=== PATIENT | female | born 1940 | race Asian ===

== ENCOUNTER 2017-03-24 17:06 | Inpatient (IN) | END 2017-04-08 14:05 | disposition home health service (06) | DRG 195 ==

== ENCOUNTER 2018-09-16 19:54 | Inpatient (IN) | payer MEDICARE, OTHER ==
[~2018-09-16] VITALS: Ht 149.9 cm; Wt 57.7 kg
[~2018-09-16 19:54] MED LIST: AMLO-147 PO; BRIM15DR7 LEFT EYE; CALC500T12 PO; ERGO2000 PO; LATA2.5D2 BOTH EYES; METF-849 PO; METO-448 PO; OMEP20CA16 PO; SIMV20TA PO
[2018-09-16] MEDS ORDERED: SOD CHLORIDE 0.9% 500 ML IV STA (23:04)
[2018-09-17] MEDS ORDERED: ONDANSETRON 4 MG INJ IV PRN (03:30)
[2018-09-17] MEDS ORDERED: ACETAMINOPHEN 325 MG TAB PO PRN (03:30)
[2018-09-17] MEDS ORDERED: NACL 0.9% 3 ML SYG IV SCH (04:00)
[2018-09-17] MEDS ORDERED: LEVALBUTEROL (NEB) 1.25 MG/0.5 ML AMP HHN PRN (04:00)
[2018-09-17] MEDS ORDERED: morphine 2 MG INJ IV PRN (04:00)
[2018-09-17] MEDS: SOD CHLORIDE 0.9% 1,000 ML IV SCH ×2 (04:15→18:13)
--- NOTE | 2018-09-17 04:38 | ERD ---
ER Documentation Chief Complaint Chief Complaint AP N/D X 1 DAY, BRIGHT RED BLOOD IN STOOL HPI This 77-year-old abdominal pain nausea and diarrhea for 1 day patient had bright red blood in her stool. She is a history of internal hemorrhoids. She states there is a left lower quadrant abdominal pain is mild to moderate in intensity with no exacerbating alleviating factors. Denies fevers or chills. Denies any other current issues. ROS All systems reviewed and are negative except as per history of present illness. Medications Home Meds Reported Medications Brimonidine Tartrate* (Brimonidine Tartrate*) 0.2%-15ML Drop Opht, 1 DROP LEFT EYE BID, #1 EA 04/04/17 Latanoprost (Latanoprost) 2.5 Ml Drops, 1 DROP BOTH EYES DAILY, #1 BOTTLE 03/25/17 Calcium Carbonate* (Oysco-500*) 1 Tab Tablet, 1 TAB PO BID, TAB 09/18/15 Simvastatin* (Zocor*) 20 Mg Tablet, 20 MG PO QHS, #30 TAB 09/18/15 Ergocalciferol (Vitamin D2) (VITAMIN D2) 2,000 Unit Tablet, 2000 UNIT PO DAILY, TAB 09/18/15 Omeprazole* (Omeprazole*) 20 Mg Capsule.dr, 20 MG PO DAILY, #30 CAP 09/18/15 Metoprolol Tartrate* (Lopressor*) 25 Mg Tab, 25 MG PO BID, #60 TAB 09/18/15 Metformin* (Glucophage*) 500 Mg Tab, 500 MG PO WITH BREAKFAST DINNE, #30 TAB 09/18/15 Discontinued Reported Medications Amlodipine Besylate* (Amlodipine Besylate*) 10 Mg Tablet, 10 MG PO DAILY, #30 TAB 09/18/15 Allergies Allergies: Coded Allergies: cyanocobalamin (vitamin B12) (Unverified Allergy, Unknown, SWELLING, 09/17/18) Uncoded Allergies: VITAMIN B12 (Allergy, Unknown, swelling, 03/05/15) PMhx/Soc History of Surgery: Yes (C-SECTIONX4,HYSTERECTOMY,LAMINECTOMY,LARYNGECTOMY) Anesthesia Reaction: No Hx Neurological Disorder: No Hx Respiratory Disorders: No Hx Cardiac Disorders: Yes (HTN,high cholesterol) Hx Psychiatric Problems: No Hx Miscellaneous Medical Probl: Yes (cancer of lanrynx, former cigarette smoker,last chemo 2016,hemorrhoids) Hx Alcohol Use: No Hx Substance Use: No Hx Tobacco Use: Yes (quit) Smoking Status: Former smoker Physical Exam Vitals Vital Signs Date Temp Pulse Resp B/P (MAP) Pulse Ox O2 O2 Flow FiO2 Time Delivery Rate 09/17/18 107 24 146/93 96 Room Air 03:53 (110) 09/17/18 91 24 122/81 94 Room Air 03:01 (95) 09/17/18 99 24 117/79 94 Room Air 02:31 (92) 09/17/18 91 24 112/66 94 Room Air 02:00 (81) 09/17/18 88 23 116/58 94 Room Air 01:30 (77) 09/17/18 88 22 125/73 96 Room Air 01:00 (90) 09/16/18 98.6 111 20 147/88 97 20:20 (107) Physical Exam Const: No acute distress Head: Atraumatic Eyes: Normal Conjunctiva ENT: Normal External Ears, Nose and Mouth. Neck: Full range of motion. No meningismus. Resp: Clear to auscultation bilaterally Cardio: Regular rate and rhythm, no murmurs Abd: Soft, non tender, non distended. Normal bowel sounds Skin: No petechiae or rashes Back: No midline or flank tenderness Ext: No cyanosis, or edema Neur: Awake and alert Psych: Normal Mood and Affect Result Diagram: 09/16/18 2356 09/16/18 2356 Results 24 hrs Laboratory Tests Test 09/16/18 23:56 09/17/18 00:51 White Blood Count 16.0 10^3/ul Red Blood Count 5.76 10^6/ul Hemoglobin 11.3 g/dl Hematocrit 38.2 % Mean Corpuscular Volume 66.3 fl Mean Corpuscular Hemoglobin 19.6 pg Mean Corpuscular Hemoglobin Concent 29.6 g/dl Red Cell Distribution Width 16.3 % Platelet Count 361 10^3/UL Mean Platelet Volume 10.6 fl Immature Granulocytes % 1.200 % Neutrophils % 71.9 % Lymphocytes % 20.6 % Monocytes % 5.2 % Eosinophils % 0.6 % Basophils % 0.5 % Nucleated Red Blood Cells % 0.0 /100WBC Immature Granulocytes # 0.200 10^3/ul Neutrophils # 11.5 10^3/ul Lymphocytes # 3.3 10^3/ul Monocytes # 0.8 10^3/ul Eosinophils # 0.1 10^3/ul Basophils # 0.1 10^3/ul Nucleated Red Blood Cells # 0.0 10^3/ul Prothrombin Time 11.9 Sec Prothrombin Time Ratio 0.9 INR International Normalized Ratio 0.87 Activated Partial Thromboplast Time 32.2 Sec Sodium Level 144 mmol/L Potassium Level 4.1 mmol/L Chloride Level 108 mmol/L Carbon Dioxide Level 23 mmol/L Anion Gap 13 Blood Urea Nitrogen 32 mg/dl Creatinine 1.09 mg/dl Est Glomerular Filtrat Rate mL/min mL/min Glucose Level 149 mg/dl Calcium Level 9.6 mg/dl Total Bilirubin 0.2 mg/dl Direct Bilirubin 0.00 mg/dl Indirect Bilirubin 0.2 mg/dl Aspartate Amino Transf (AST/SGOT) 22 IU/L Alanine Aminotransferase (ALT/SGPT) 21 IU/L Alkaline Phosphatase 109 IU/L Total Protein 7.3 g/dl Albumin 4.0 g/dl Globulin 3.30 g/dl Albumin/Globulin Ratio 1.21 Lipase 138 U/L Urine Color YELLOW Urine Clarity SLIGHTLY CLOUDY Urine pH 5.0 Urine Specific [place] 1.028 Urine Ketones NEGATIVE mg/dL Urine Nitrite NEGATIVE mg/dL Urine Bilirubin NEGATIVE mg/dL Urine Urobilinogen NEGATIVE mg/dL Urine Leukocyte Esterase NEGATIVE Loly/ul Urine Microscopic RBC 4 /HPF Urine Microscopic WBC 0 /HPF Urine Bacteria FEW /HPF Urine Mucus FEW /HPF Urine Hemoglobin NEGATIVE mg/dL Urine Glucose NEGATIVE mg/dL Urine Total Protein NEGATIVE mg/dl Current Medications Medications Dose Sig/Rickie Start Time Status Last (Trade) Ordered Route PRN Stop Time Admin Dose Reason Admin Sodium 500 ml @ Q1H STAT 09/16/18 DC 09/17/18 Chloride 500 mls/hr IV 23:04 00:42 09/17/18 00:03 Ondansetron 4 mg BRIDGE ORDER 09/17/18 HCl (Zofran PRN IV 03:30 Inj) NAUSEA/VOMITI 09/18/18 03:29 NG 650 mg ER BRIDGE 09/17/18 Acetaminophen PRN PO 03:30 (Tylenol .MILD PAIN 09/18/18 03:29 Tab) 1-3 OR TEMP Sodium 1,000 ml @ [id number] IV 09/17/18 09/17/18 Chloride 70 mls/hr 03:55 04:15 IV Flush 3 ml PER 09/17/18 (NS 3 ml) PROTOCOL IV 04:00 Ondansetron 4 mg Q6H PRN 09/17/18 HCl (Zofran IV 04:00 Inj) NAUSEA/VOMITI NG 650 mg Q6H PRN 09/17/18 Acetaminophen PO .PAIN 1-3 04:00 (Tylenol OR TEMP Tab) Morphine 2 mg Q4H PRN 09/17/18 Sulfate IV .SEVERE 04:00 (morphine) PAIN 7-10 1.25 mg Q4H RESP 09/17/18 Levalbuterol THERAPY PRN 04:00 (Xopenex HHN Neb) SHORTNESS OF BREATH Procedures/MDM Medical decision makin-year-old female with elevated white count, left lower quadrant pain, diarrhea. Suspicious for early diverticulitis. No evid ence of surgical abdomen, however given her multiple comorbidities I feel the patient is to be admitted further evaluation management. Dr. Montano made aware. Departure Diagnosis: Primary Impression: Diverticulitis Condition: JOHNNY Birch Sep 17, 2018 04:38
[2018-09-17 05:37] VITALS: Ht 149.9 cm; Wt 57.7 kg
[2018-09-17 06:00] VITALS: BP 127/70; PULSE 96; RESP 17
--- NOTE | 2018-09-17 06:38 | HP ---
Date/Time of Note Date/Time of Note DATE: 09/17/18 TIME: 06:26 Assessment/Plan VTE Prophylaxis SCD applied (from Nsg): Yes Pharmacological prophylaxis: NA/contraindicated Pharm contraindication: low risk/ambulating Lines/Catheters IV Catheter Type (from Nrsg): Peripheral IV Assessment/Plan Hospital Course This is a 77-year female admitted to the [facility] floor for: #1 rectal bleeding: Possible diverticular bleed versus hemorrhoids. We will keep the patient n.p.o. IV hydration with normal saline. CBC every 6 hours. Will consult GI #2 URI: Likely viral. Patient is afebrile. PRN nebulizers, cough suppressant. Will monitor for any signs of fever. #3 leukocytosis: Possibly reactive, patient does have upper respiratory infection but she has remained afebrile according to her. Will check blood cultures x2, urinalysis is negative. Chest x-ray does show signs of possible bronchiolitis however patient does have a history also of lung CA. 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 #5 HIREN: Likely prerenal etiology, will hydrate the patient. Will monitor renal function. #6 diabetes mellitus: We will check hemoglobin A 1C, insulin sliding scale #7 glaucoma: We will continue patient's home ophthalmology meds #8 hyperlipidemia: Continue statin #9 hypertension: We will resume patient's home medications #10 DVT GI prophylaxis: SCDs, no GI prophylaxis indicated Further treatment strategy will be implemented as per the clinical course. Result Diagram: 09/16/18235509/16/18 2356 Results 24hrs Laboratory Tests Test 09/16/18 23:56 09/17/18 00:51 White Blood Count 16.0 #H Red Blood Count 5.76 #H Hemoglobin 11.3 #L Hematocrit 38.2 # Mean Corpuscular Volume 66.3 L Mean Corpuscular Hemoglobin 19.6 L Mean Corpuscular Hemoglobin Concent 29.6 L Red Cell Distribution Width 16.3 H Platelet Count 361 Mean Platelet Volume 10.6 H Immature Granulocytes % 1.200 H Neutrophils % 71.9 Lymphocytes % 20.6 Monocytes % 5.2 Eosinophils % 0.6 Basophils % 0.5 Nucleated Red Blood Cells % 0.0 Immature Granulocytes # 0.200 H Neutrophils # 11.5 H Lymphocytes # 3.3 H Monocytes # 0.8 Eosinophils # 0.1 Basophils # 0.1 Nucleated Red Blood Cells # 0.0 Prothrombin Time 11.9 Prothrombin Time Ratio 0.9 INR International Normalized Ratio 0.87 Activated Partial Thromboplast Time 32.2 Sodium Level 144 Potassium Level 4.1 Chloride Level 108 Carbon Dioxide Level 23 Anion Gap 13 Blood Urea Nitrogen 32 H Creatinine 1.09 H Est Glomerular Filtrat Rate mL/min Glucose Level 149 Calcium Level 9.6 Total Bilirubin 0.2 Direct Bilirubin 0.00 Indirect Bilirubin 0.2 Aspartate Amino Transf (AST/SGOT) 22 Alanine Aminotransferase (ALT/SGPT) 21 Alkaline Phosphatase 109 Total Protein 7.3 Albumin 4.0 Globulin 3.30 H Albumin/Globulin Ratio 1.21 Lipase 138 Urine Color YELLOW Urine Clarity SLIGHTLY CLOUDY A Urine pH 5.0 Urine Specific [place] 1.028 Urine Ketones NEGATIVE Urine Nitrite NEGATIVE Urine Bilirubin NEGATIVE Urine Urobilinogen NEGATIVE Urine Leukocyte Esterase NEGATIVE Urine Microscopic RBC 4 Urine Microscopic WBC 0 Urine Bacteria FEW A Urine Mucus FEW A Urine Hemoglobin NEGATIVE Urine Glucose NEGATIVE Urine Total Protein NEGATIVE HPI/ROS Admit Date/Time Admit Date/Time Sep 17, 2018 at 03:17 Hx of Present Illness Chief complaint: Rectal bleeding This is a 77-year-old female who presents to the ER today with 1 night of rectal bleeding. Patient reports that she had multiple bright red blood bowel movement. She denies any abdominal pain. She does report a history of hemorrhoids. She states that she does have some pain in the rectal area. Patient also has a one-week history of a nonproductive cough. She denies any fevers. Patient has a history of laryngeal cancer with mets to the lung. She previously received chemotherapy and radiation in 2017. Patient was originally admitted for diverticulitis however on CT scan there is no evidence of diverticulitis. Patient is afebrile. She does not report any fevers at home. There is evidence of diverticulosis. Allergies: Vitamin B12 Medications: Pulmonary tartrate Calcium carbonate Latanoprost Metformin Lopressor Simvastatin ROS Const: As per HPI Eyes : No pain discharge or redness or change in visual acuity ENT: No pain, sore throat, congestion, congestion, dysphagia or discharge Respiratory: As per HPI, Cardiovascular: No chest pain, palpitation, PND, or edema GI : As per HPI Genitourinary: No dysuria, hematuria, flank pain , discharge or CVA tenderness Musculoskeletal: No joint pain, back pain, neck pain, restricted range of motion in neck or joints Skin: No rash, bruising or hives Neuro: No headache, dizziness, syncope, seizure, focal weakness Endocrine: No polyuria, polydipsia, temperature intolerance Psych: No hallucination, depression, anxiety or suicidal ideation PMH/Family/Social Past Medical History Hypertension Diabetes mellitus Glaucoma Hyperlipidemia History of laryngeal cancer with mass of the lung Medications Current Medications Ondansetron HCl (Zofran Inj) 4 mg BRIDGE ORDER PRN IV NAUSEA/VOMITING; Start 09/17/18 at 03:30; Stop 09/18/18 at 03:29 Acetaminophen (Tylenol Tab) 650 mg ER BRIDGE PRN PO .MILD PAIN 1-3 OR TEMP; Start 09/17/18 at 03:30; Stop 09/18/18 at 03:29 Sodium Chloride 1,000 ml @ 70 mls/hr [id number] IV Last administered on 09/17/18at 04:15; Admin Dose 70 MLS/HR; Start 09/17/18 at 03:55 IV Flush (NS 3 ml) 3 ml PER PROTOCOL IV ; Start 09/17/18 at 04:00 Ondansetron HCl (Zofran Inj) 4 mg Q6H PRN IV NAUSEA/VOMITING; Start 09/17/18 at 04:00 Acetaminophen (Tylenol Tab) 650 mg Q6H PRN PO .PAIN 1-3 OR TEMP; Start 09/17/18 at 04:00 Morphine Sulfate (morphine) 2 mg Q4H PRN IV .SEVERE PAIN 7-10; Start 09/17/18 at 04:00 Levalbuterol (Xopenex Neb) 1.25 mg Q4H RESP THERAPY PRN HHN SHORTNESS OF BREATH; Start 09/17/18 at 04:00 Coded Allergies: cyanocobalamin (vitamin B12) (Unverified Allergy, Unknown, SWELLING, 09/17/18) Past Surgical History Hysterectomy, laminectomy, x4, partial laryngectomy Family History Significant Family History: no pertinent family hx Social History Alcohol Use: none Smoking Status: Former smoker Drug Use: none Exam/Review of Systems Vital Signs Vitals Vital Signs Date Temp Pulse Resp B/P (MAP) Pulse Ox O2 O2 Flow FiO2 Time Delivery Rate 09/17/18 98.1 96 17 127/70 95 Room Air 06:00 (89) Intake and Output 09/16/18 09/16/18 09/17/18 1515:00 23:00 07:00 IntakeIntake Total 640 ml BalanceBalance 640 ml Exam Exam General: Patient is a pleasant female currently lying in bed in no acute distress HEENT: Atraumatic, normocephalic. The pupils are equal, round and reactive. Extraocular motor are intact Neck: Supple with full range of motion. No rigidity or meningismus Chest: Nontender Lungs: Clear to auscultation bilaterally no crackles rales or wheezing Heart: Normal S1-S2, Regular rhythm and rate. No murmur, S3, or S4 Abdomen: Soft , nontender, nondistended , bowel sounds are present. No guarding no rebound tenderness , No masses or organomegaly. Extremities: Normal to inspection, no edema no cyanosis Genitourinary deferred Rectal deferred Neurologic: Normal mental status, speech normal, cranial nerves II through XII are intact, motor and sensory are intact, MAGALY FLYNN Sep 17, 2018 06:37
[2018-09-17] MEDS: PANTOPRAZOLE (EC) 40 MG TAB PO SCH (07:00)
[2018-09-17] MEDS ORDERED: IODIXANOL LOCM 100 ML BTL ONE (07:40)
[2018-09-17] MEDS ORDERED: SOD CHLORIDE 0.9% 100 ML ONE (07:40)
[2018-09-17] MEDS: METOPROLOL 25 MG TAB PO SCH ×3 (09:00→20:26)
[2018-09-17] MEDS ORDERED: NON-FORMULARY/PATIENT OWN MED (Omeprazole* 20 MG) PO SCH (09:00)
[2018-09-17] MEDS: FERROUS SULFATE (EC) 325 MG TAB PO SCH ×3 (09:00→20:28)
[2018-09-17] MEDS: LATANOPROST 0.005% 2.5 ML OPH BOTH EYES SCH ×2 (09:00→13:32)
[2018-09-17] MEDS: BRIMONIDINE 0.2% 5 ML BTL LEFT EYE SCH ×2 (09:17→20:28)
--- NOTE | 2018-09-17 10:42 | PN ---
Date/Time of Note Date/Time of Note DATE: 09/17/18 TIME: 10:38 Assessment/Plan VTE Prophylaxis Risk score (from [facility])>0 risk: 3 SCD applied (from [facility]): Yes Pharmacological prophylaxis: NA/contraindicated Pharm contraindication: bleeding Lines/Catheters IV Catheter Type (from [facility]): Peripheral IV Assessment/Plan Hospital Course Assessment and plan 1. Rectal bleeding. Suspect diverticular bleed versus hemorrhoids. N.p.o. for now. Continue IV hydration. Edi Developer was notified. Monitor H&H trend. 2. Suspect URI. Patient afebrile at present. Will provide with breathing treatments as needed. No signs of fever at present. Suspect viral etiology. 3. Leukocytosis. Likely reactive. Monitor trend. 4. 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 CT scan of the chest is pending. We will follow-up with results. 5. Acute on likely chronic kidney disease. Monitor renal function. Continue with hydration. Correct electrolytes as needed. 6. Diabetes. Follow-up on A1c. Insulin regimen to be continued. 7. History of glaucoma. Patient's home ophthalmologic medications to be continued. 8. Hyperlipidemia. Resume on statin. 9. Hypertension. Continue antihypertensives. Disposition and plan. Edi Developer evaluation is pending. Monitor H&H trend. Transfuse blood products as needed. Follow-up on CT scan of the chest to evaluate pulmonary status. Discussed POC with Dr. Grant Result Diagram: 09/17/18 0933 09/17/18 0546 Results 24hrs Laboratory Tests Test 09/16/18 23:56 09/17/18 00:51 09/17/18 05:46 09/17/18 05:47 White Blood Count 16.0 #H 10.0 # Red Blood Count 5.76 #H 4.68 Hemoglobin 11.3 #L 9.2 L Hematocrit 38.2 # 30.6 L Mean Corpuscular 66.3 L 65.4 L Volume Mean Corpuscular 19.6 L 19.7 L Hemoglobin Mean Corpuscular 29.6 L 30.1 L Hemoglobin Concen t Red Cell 16.3 H 15.9 H Distribution Width Platelet Count 361 329 Mean Platelet 10.6 H 11.0 H Volume Immature 1.200 H 1.200 H Granulocytes % Neutrophils % 71.9 66.2 Lymphocytes % 20.6 23.9 Monocytes % 5.2 7.4 Eosinophils % 0.6 0.8 Basophils % 0.5 0.5 Nucleated Red 0.0 0.0 Blood Cells % Immature 0.200 H 0.120 H Granulocytes # Neutrophils # 11.5 H 6.6 Lymphocytes # 3.3 H 2.4 Monocytes # 0.8 0.7 Eosinophils # 0.1 0.1 Basophils # 0.1 0.1 Nucleated Red 0.0 0.0 Blood Cells # Prothrombin Time 11.9 12.5 Prothrombin Time 0.9 1.0 Ratio INR International 0.87 0.92 Normalized Ratio Activated 32.2 33.4 Partial Thrombopl ast Time Sodium Level 144 143 Potassium Level 4.1 3.6 Chloride Level 108 110 Carbon Dioxide 23 26 Level Anion Gap 13 7 Blood Urea 32 H 29 H Nitrogen Creatinine 1.09 H 0.94 Est Glomerular Filtrat Rate mL/min Glucose Level 149 182 Calcium Level 9.6 8.5 Total Bilirubin 0.2 0.2 Direct Bilirubin 0.00 0.00 Indirect 0.2 0.2 Bilirubin Aspartate Amino 22 16 Transf (AST/SGOT) Alanine 21 21 Aminotransferase (ALT/SGPT) Alkaline 109 94 Phosphatase Total Protein 7.3 6.4 Albumin 4.0 3.3 Globulin 3.30 H 3.10 Albumin/Globulin 1.21 1.06 Ratio Lipase 138 Urine Color YELLOW Urine Clarity SLIGHTLY CLOUDY A Urine pH 5.0 Urine Specific 1.028 [place] Urine Ketones NEGATIVE Urine Nitrite NEGATIVE Urine Bilirubin NEGATIVE Urine NEGATIVE Urobilinogen Urine Leukocyte NEGATIVE Esterase Urine Microscopic 4 RBC Urine Microscopic 0 WBC Urine Bacteria FEW A Urine Mucus FEW A Urine Hemoglobin NEGATIVE Urine Glucose NEGATIVE Urine Total NEGATIVE Protein Hemoglobin A1c 7.7 H Magnesium Level 1.9 Iron Level 30 L Total Iron 287 Binding Capacity Percent Iron 10 L Saturation Ferritin 53.1 C-Reactive 0.9 Protein Triglycerides 240 H Level Cholesterol Level 102 LDL Cholesterol, 40 Calculated HDL Cholesterol 14 L Cholesterol/HDL 7.2 Ratio Thyroid 0.706 Stimulating Hormone (TSH) Test 09/17/18 09:33 White Blood Count 13.3 #H Red Blood Count 4.32 Hemoglobin 8.6 L Hematocrit 28.5 L Mean Corpuscular 66.0 L Volume Mean Corpuscular 19.9 L Hemoglobin Mean Corpuscular 30.2 L Hemoglobin Concen t Red Cell 16.0 H Distribution Width Platelet Count 295 Mean Platelet 10.3 Volume Immature 1.100 H Granulocytes % Neutrophils % 69.4 Lymphocytes % 22.1 Monocytes % 6.4 Eosinophils % 0.6 Basophils % 0.4 Nucleated Red 0.0 Blood Cells % Immature 0.150 H Granulocytes # Neutrophils # 9.2 H Lymphocytes # 2.9 Monocytes # 0.9 Eosinophils # 0.1 Basophils # 0.1 Nucleated Red 0.0 Blood Cells # Subjective 24 Hr Interval Summary Free Text/Dictation denies any abdominal pain. States she is hungry Exam/Review of Systems Exam Vitals Vital Signs Date Temp Pulse Resp B/P (MAP) Pulse Ox O2 O2 Flow FiO2 Time Delivery Rate 09/17/18 98.1 96 17 127/70 95 Room Air 06:00 (89) Intake and Output 09/16/18 09/16/18 09/17/18 1515:00 23:00 07:00 IntakeIntake Total 640 ml BalanceBalance 640 ml Constitutional: alert, oriented Psych: nl mood/affect Head: normocephalic Neck: supple, non-tender Respiratory: normal air movement Cardiovascular: regular rate and rhythm Gastrointestinal: soft, non-tender Musculoskeletal: No muscle weakness Neurological: GARDENING INSTRUCTOR II-XII intact, nl mental status, nl speech Results Results 24hrs Laboratory Tests Test 09/16/18 23:56 09/17/18 00:51 09/17/18 05:46 09/17/18 05:47 White Blood Count 16.0 #H 10.0 # Red Blood Count 5.76 #H 4.68 Hemoglobin 11.3 #L 9.2 L Hematocrit 38.2 # 30.6 L Mean Corpuscular 66.3 L 65.4 L Volume Mean Corpuscular 19.6 L 19.7 L Hemoglobin Mean Corpuscular 29.6 L 30.1 L Hemoglobin Concen t Red Cell 16.3 H 15.9 H Distribution Width Platelet Count 361 329 Mean Platelet 10.6 H 11.0 H Volume Immature 1.200 H 1.200 H Granulocytes % Neutrophils % 71.9 66.2 Lymphocytes % 20.6 23.9 Monocytes % 5.2 7.4 Eosinophils % 0.6 0.8 Basophils % 0.5 0.5 Nucleated Red 0.0 0.0 Blood Cells % Immature 0.200 H 0.120 H Granulocytes # Neutrophils # 11.5 H 6.6 Lymphocytes # 3.3 H 2.4 Monocytes # 0.8 0.7 Eosinophils # 0.1 0.1 Basophils # 0.1 0.1 Nucleated Red 0.0 0.0 Blood Cells # Prothrombin Time 11.9 12.5 Prothrombin Time 0.9 1.0 Ratio INR International 0.87 0.92 Normalized Ratio Activated 32.2 33.4 Partial Thrombopl ast Time Sodium Level 144 143 Potassium Level 4.1 3.6 Chloride Level 108 110 Carbon Dioxide 23 26 Level Anion Gap 13 7 Blood Urea 32 H 29 H Nitrogen Creatinine 1.09 H 0.94 Est Glomerular Filtrat Rate mL/min Glucose Level 149 182 Calcium Level 9.6 8.5 Total Bilirubin 0.2 0.2 Direct Bilirubin 0.00 0.00 Indirect 0.2 0.2 Bilirubin Aspartate Amino 22 16 Transf (AST/SGOT) Alanine 21 21 Aminotransferase (ALT/SGPT) Alkaline 109 94 Phosphatase Total Protein 7.3 6.4 Albumin 4.0 3.3 Globulin 3.30 H 3.10 Albumin/Globulin 1.21 1.06 Ratio Lipase 138 Urine Color YELLOW Urine Clarity SLIGHTLY CLOUDY A Urine pH 5.0 Urine Specific 1.028 [place] Urine Ketones NEGATIVE Urine Nitrite NEGATIVE Urine Bilirubin NEGATIVE Urine NEGATIVE Urobilinogen Urine Leukocyte NEGATIVE Esterase Urine Microscopic 4 RBC Urine Microscopic 0 WBC Urine Bacteria FEW A Urine Mucus FEW A Urine Hemoglobin NEGATIVE Urine Glucose NEGATIVE Urine Total NEGATIVE Protein Hemoglobin A1c 7.7 H Magnesium Level 1.9 Iron Level 30 L Total Iron 287 Binding Capacity Percent Iron 10 L Saturation Ferritin 53.1 C-Reactive 0.9 Protein Triglycerides 240 H Level Cholesterol Level 102 LDL Cholesterol, 40 Calculated HDL Cholesterol 14 L Cholesterol/HDL 7.2 Ratio Thyroid 0.706 Stimulating Hormone (TSH) Test 09/17/18 09:33 White Blood Count 13.3 #H Red Blood Count 4.32 Hemoglobin 8.6 L Hematocrit 28.5 L Mean Corpuscular 66.0 L Volume Mean Corpuscular 19.9 L Hemoglobin Mean Corpuscular 30.2 L Hemoglobin Concen t Red Cell 16.0 H Distribution Width Platelet Count 295 Mean Platelet 10.3 Volume Immature 1.100 H Granulocytes % Neutrophils % 69.4 Lymphocytes % 22.1 Monocytes % 6.4 Eosinophils % 0.6 Basophils % 0.4 Nucleated Red 0.0 Blood Cells % Immature 0.150 H Granulocytes # Neutrophils # 9.2 H Lymphocytes # 2.9 Monocytes # 0.9 Eosinophils # 0.1 Basophils # 0.1 Nucleated Red 0.0 Blood Cells # Medications Medication Current Medications Ondansetron HCl (Zofran Inj) 4 mg BRIDGE ORDER PRN IV NAUSEA/VOMITING; Start 09/17/18 at 03:30; Stop 09/18/18 at 03:29 Acetaminophen (Tylenol Tab) 650 mg ER BRIDGE PRN PO .MILD PAIN 1-3 OR TEMP; Start 09/17/18 at 03:30; Stop 09/18/18 at 03:29 Sodium Chloride 1,000 ml @ 70 mls/hr [id number] IV Last administered on 09/17/18at 04:15; Admin Dose 70 MLS/HR; Start 09/17/18 at 03:55 IV Flush (NS 3 ml) 3 ml PER PROTOCOL IV ; Start 09/17/18 at 04:00 Ondansetron HCl (Zofran Inj) 4 mg Q6H PRN IV NAUSEA/VOMITING; Start 09/17/18 at 04:00 Acetaminophen (Tylenol Tab) 650 mg Q6H PRN PO .PAIN 1-3 OR TEMP; Start 09/17/18 at 04:00 Morphine Sulfate (morphine) 2 mg Q4H PRN IV .SEVERE PAIN 7-10; Start 09/17/18 at 04:00 Levalbuterol (Xopenex Neb) 1.25 mg Q4H RESP THERAPY PRN HHN SHORTNESS OF BREATH; Start 09/17/18 at 04:00 Brimonidine Tartrate (Alphagan 0.2%) 1 drop BID LEFT EYE Last administered on 09/17/18at 09:17; Admin Dose 1 DROP; Start 09/17/18 at 09:00 Latanoprost (Xalatan) 1 drop DAILY BOTH EYES ; Start 09/17/18 at 09:00 Metoprolol Tartrate (Lopressor) 25 mg BID PO ; Start 09/17/18 at 09:00 Pantoprazole (Protonix Tab) 40 mg DAILY@06 PO ; Start 09/17/18 at 07:00 Atorvastatin Calcium (Lipitor) 10 mg DAILY@21 PO ; Start 09/17/18 at 21:00 Ferrous Sulfate (Ferrous Sulfate (Ec)) 325 mg BID PO ; Start 09/17/18 at 09:00 HIEU SHRESTHA NP Sep 17, 2018 10:42
[2018-09-17] MEDS ORDERED: MAGNESIUM CITRATE 300 ML BTL PO ONE ×2 (12:30→23:30)
[2018-09-17] MEDS ORDERED: LACTULOSE 30ML CUP PO SCH (14:00)
[2018-09-17 14:48] VITALS: BP 116/59; PULSE 109; RESP 15
[2018-09-17] MEDS: LACTULOSE 30ML CUP PO SCH ×3 (16:50→21:52)
[2018-09-17 20:18] VITALS: BP 114/69; PULSE 128; RESP 16
[2018-09-17] MEDS: ATORVASTATIN 10 MG TAB PO SCH (20:27)
[2018-09-17] MEDS: ACETAMINOPHEN 325 MG TAB PO PRN (20:27)
[2018-09-17 20:58] VITALS: PULSE 101
[2018-09-17] MEDS ORDERED: NON-FORMULARY/PATIENT OWN MED (Simvastatin* (Zocor*) 20 MG) PO SCH (21:00)
[2018-09-18] VITALS (13 sets, daily range): BP systolic 102–169; BP diastolic 53–80; PULSE 86–106; RESP 16–34
[2018-09-18] MEDS: SOD CHLORIDE 0.9% 1,000 ML IV SCH ×2 (00:01→21:03)
[2018-09-18] MEDS: LACTULOSE 30ML CUP PO SCH (00:32)
[2018-09-18] MEDS: PANTOPRAZOLE (EC) 40 MG TAB PO SCH (04:38)
[2018-09-18] MEDS: METOPROLOL 25 MG TAB PO SCH ×2 (09:00→21:02)
[2018-09-18] MEDS: FERROUS SULFATE (EC) 325 MG TAB PO SCH ×2 (09:00→21:02)
[2018-09-18] MEDS: LATANOPROST 0.005% 2.5 ML OPH BOTH EYES SCH (09:19)
[2018-09-18] MEDS: BRIMONIDINE 0.2% 5 ML BTL LEFT EYE SCH ×2 (09:19→21:02)
--- NOTE | 2018-09-18 11:06 | PN ---
Date/Time of Note Date/Time of Note DATE: 09/18/18 TIME: 10:58 Assessment/Plan VTE Prophylaxis Risk score (from [facility] [place])>0 risk: 5 SCD applied (from [facility] [place]): Yes Pharmacological prophylaxis: NA/contraindicated Pharm contraindication: bleeding Lines/Catheters IV C[facility]ter Type (from [facility]): Peripheral IV Assessment/Plan Hospital Course Assessment and plan 1. Rectal bleeding. - Suspect diverticular bleed versus hemorrhoids. - Continue IV hydration - monitor H&H - plan for colonoscopy 2. Suspect URI. - Patient afebrile at present. - Will provide with breathing treatments as needed. - No signs of fever at present. Suspect viral etiology. 3. Leukocytosis. - Likely reactive. Monitor trend. 4. 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 - Patient for outpatient f/u - CT imagin. Previously seen tracheal mass is no longer visualized. 2. Areas of scarring/fibrosis are present in the medial lung bilaterally, presumably sequela of radiation pneumonitis. 3. Indeterminate 6 mm right middle lobe pulmonary nodule is identified , increased in size when compared to the prior CT from 2014 - CT followup in 6- 12 months is recommended to assess interval stability. (2017 Fleischner Society Criteria) 5. Acute on likely chronic kidney disease. - Monitor renal function. - Continue with hydration. Correct electrolytes as needed. 6. Diabetes. - Insulin regimen to be continued. 7. History of glaucoma. - Patient's home ophthalmologic medications to be continued. 8. Hyperlipidemia. - continue on statin. 9. Hypertension. Continue antihypertensives. Disposition and plan. plan for colonoscopy. will f/u Discussed POC with Dr. Grant Result Diagram: 09/18/18 0456 09/18/18 0456 Results 24hrs Laboratory Tests Test 09/17/18 17:19 09/17/18 23:30 09/18/18 04:56 White Blood Count 15.3 H 12.8 H 9.5 # Red Blood Count 4.56 3.84 L 3.79 L Hemoglobin 8.9 L 7.6 L 7.5 L Hematocrit 30.2 L 25.4 L 25.2 L Mean Corpuscular Volume 66.2 L 66.1 L 66.5 L Mean Corpuscular Hemoglobin 19.5 L 19.8 L 19.8 L Mean Corpuscular Hemoglobin Concent 29.5 L 29.9 L 29.8 L Red Cell Distribution Width 16.2 H 15.9 H 16.2 H Platelet Count 338 281 291 Mean Platelet Volume 10.9 H 11.0 H 12.0 H Immature Granulocytes % 0.800 H 0.600 H 0.600 H Neutrophils % 75.7 73.6 69.6 Lymphocytes % 17.5 19.9 20.1 Monocytes % 5.3 5.5 8.9 Eosinophils % 0.4 0.2 0.5 Basophils % 0.3 0.2 0.3 Nucleated Red Blood Cells % 0.0 0.0 0.0 Immature Granulocytes # 0.120 H 0.080 H 0.060 H Neutrophils # 11.6 H 9.4 H 6.6 Lymphocytes # 2.7 2.6 1.9 Monocytes # 0.8 0.7 0.8 Eosinophils # 0.1 0.0 0.1 Basophils # 0.1 0.0 0.0 Nucleated Red Blood Cells # 0.0 0.0 0.0 Erythrocyte Sedimentation Rate 26 Sodium Level 144 Potassium Level 4.2 Chloride Level 112 H Carbon Dioxide Level 26 Anion Gap 6 Blood Urea Nitrogen 19 # Creatinine 0.80 Est Glomerular Filtrat Rate mL/min Glucose Level 105 # Calcium Level 8.1 L Total Bilirubin 0.3 Direct Bilirubin 0.00 Indirect Bilirubin 0.3 Aspartate Amino Transf (AST/SGOT) 14 L Alanine Aminotransferase (ALT/SGPT) 22 Alkaline Phosphatase 68 Total Protein 5.4 #L Albumin 2.8 L Globulin 2.60 Albumin/Globulin Ratio 1.07 Subjective 24 Hr Interval Summary Free Text/Dictation patient comfortable. states she still has some blood in her stool Exam/Review of Systems Exam Vitals Vital Signs Date Temp Pulse Resp B/P (MAP) Pulse Ox O2 O2 Flow FiO2 Time Delivery Rate 09/18/18 98.4 87 17 134/63 92 07:29 (86) 09/17/18 Room Air 14:48 Intake and Output 09/17/18 09/17/18 09/18/18 1515:00 23:00 07:00 IntakeIntake Total 300 ml 1660 ml OutputOutput Total 1 ml BalanceBalance 300 ml 1659 ml Exam Constitutional: alert, oriented Psych: nl mood/affect Head: normocephalic Neck: supple, non-tender Respiratory: normal air movement Cardiovascular: regular rate and rhythm Gastrointestinal: soft, non-tender Musculoskeletal: No muscle weakness Neurological: HERPETOLOGIST II-XII intact, nl mental status, nl speech Results Results 24hrs Laboratory Tests Test 09/17/18 17:19 09/17/18 23:30 09/18/18 04:56 White Blood Count 15.3 H 12.8 H 9.5 # Red Blood Count 4.56 3.84 L 3.79 L Hemoglobin 8.9 L 7.6 L 7.5 L Hematocrit 30.2 L 25.4 L 25.2 L Mean Corpuscular Volume 66.2 L 66.1 L 66.5 L Mean Corpuscular Hemoglobin 19.5 L 19.8 L 19.8 L Mean Corpuscular Hemoglobin Concent 29.5 L 29.9 L 29.8 L Red Cell Distribution Width 16.2 H 15.9 H 16.2 H Platelet Count 338 281 291 Mean Platelet Volume 10.9 H 11.0 H 12.0 H Immature Granulocytes % 0.800 H 0.600 H 0.600 H Neutrophils % 75.7 73.6 69.6 Lymphocytes % 17.5 19.9 20.1 Monocytes % 5.3 5.5 8.9 Eosinophils % 0.4 0.2 0.5 Basophils % 0.3 0.2 0.3 Nucleated Red Blood Cells % 0.0 0.0 0.0 Immature Granulocytes # 0.120 H 0.080 H 0.060 H Neutrophils # 11.6 H 9.4 H 6.6 Lymphocytes # 2.7 2.6 1.9 Monocytes # 0.8 0.7 0.8 Eosinophils # 0.1 0.0 0.1 Basophils # 0.1 0.0 0.0 Nucleated Red Blood Cells # 0.0 0.0 0.0 Erythrocyte Sedimentation Rate 26 Sodium Level 144 Potassium Level 4.2 Chloride Level 112 H Carbon Dioxide Level 26 Anion Gap 6 Blood Urea Nitrogen 19 # Creatinine 0.80 Est Glomerular Filtrat Rate mL/min Glucose Level 105 # Calcium Level 8.1 L Total Bilirubin 0.3 Direct Bilirubin 0.00 Indirect Bilirubin 0.3 Aspartate Amino Transf (AST/SGOT) 14 L Alanine Aminotransferase (ALT/SGPT) 22 Alkaline Phosphatase 68 Total Protein 5.4 #L Albumin 2.8 L Globulin 2.60 Albumin/Globulin Ratio 1.07 Medications Medication Current Medications Sodium Chloride 1,000 ml @ 70 mls/hr [id number] IV Last administered on 09/18/18at 00:01; Admin Dose 70 MLS/HR; Start 09/17/18 at 03:55 IV Flush (NS 3 ml) 3 ml PER PROTOCOL IV ; Start 09/17/18 at 04:00 Ondansetron HCl (Zofran Inj) 4 mg Q6H PRN IV NAUSEA/VOMITING; Start 09/17/18 at 04:00 Acetaminophen (Tylenol Tab) 650 mg Q6H PRN PO .PAIN 1-3 OR TEMP Last administered on 09/17/18at 20:27; Admin Dose 650 MG; Start 09/17/18 at 04:00 Morphine Sulfate (morphine) 2 mg Q4H PRN IV .SEVERE PAIN 7-10; Start 09/17/18 at 04:00 Levalbuterol (Xopenex Neb) 1.25 mg Q4H RESP THERAPY PRN HHN SHORTNESS OF BREATH; Start 09/17/18 at 04:00 Brimonidine Tartrate (Alphagan 0.2%) 1 drop BID LEFT EYE Last administered on 09/18/18at 09:19; Admin Dose 1 DROP; Start 09/17/18 at 09:00 Latanoprost (Xalatan) 1 drop DAILY BOTH EYES Last administered on 09/18/18at 09:19; Admin Dose 1 DROP; Start 09/17/18 at 09:00 Metoprolol Tartrate (Lopressor) 25 mg BID PO Last administered on 09/17/18at 20:26; Admin Dose 25 MG; Start 09/17/18 at 09:00 Pantoprazole (Protonix Tab) 40 mg DAILY@06 PO ; Start 09/17/18 at 07:00 Atorvastatin Calcium (Lipitor) 10 mg DAILY@21 PO Last administered on 09/17/18at 20:27; Admin Dose 10 MG; Start 09/17/18 at 21:00 Ferrous Sulfate (Ferrous Sulfate (Ec)) 325 mg BID PO Last administered on 09/17/18at 20:28; Admin Dose 325 MG; Start 09/17/18 at 09:00 Ferric Sodium Gluconate Complex 125 mg/Sodium Chloride 100 ml @ 100 mls/hr DAILY@1300 IVPB ; Start 09/18/18 at 13:00; Stop 09/20/18 at 13:59 HIEU SHRESTHA NP Sep 18, 2018 11:06
--- NOTE | 2018-09-18 12:58 | PREAC ---
Date/Time of Note Date/Time of Note DATE: 09/18/18 TIME: 12:56 Anesthesia Eval and Record Evaluation Time Pre-Procedure Interview DATE: 09/18/18 TIME: 12:56 Age 77 Sex female NPO: 8 hrs Preoperative diagnosis Rectal bleeding Planned procedure EGD, colonoscopy Past Medical History Past Medical History: Includes Cardio: HTN, Dyslipidemia Endo: Diabetes Renal: HIREN Surgery & Anesthesia Issues No known issue Meds Anticoagulation: No Beta Justin within 24 hr: Yes Reported Medications Brimonidine Tartrate* (Brimonidine Tartrate*) 0.2%-15ML Drop Opht, 1 DROP LEFT EYE BID, #1 EA 04/04/17 Latanoprost (Latanoprost) 2.5 Ml Drops, 1 DROP BOTH EYES DAILY, #1 BOTTLE 03/25/17 Calcium Carbonate* (Oysco-500*) 1 Tab Tablet, 1 TAB PO BID, TAB 09/18/15 Simvastatin* (Zocor*) 20 Mg Tablet, 20 MG PO QHS, #30 TAB 09/18/15 Ergocalciferol (Vitamin D2) (VITAMIN D2) 2,000 Unit Tablet, 2000 UNIT PO DAILY, TAB 09/18/15 Omeprazole* (Omeprazole*) 20 Mg Capsule.dr, 20 MG PO DAILY, #30 CAP 09/18/15 Metoprolol Tartrate* (Lopressor*) 25 Mg Tab, 25 MG PO BID, #60 TAB 09/18/15 Metformin* (Glucophage*) 500 Mg Tab, 500 MG PO WITH BREAKFAST DINNE, #30 TAB 09/18/15 Discontinued Reported Medications Amlodipine Besylate* (Amlodipine Besylate*) 10 Mg Tablet, 10 MG PO DAILY, #30 TAB 09/18/15 Current Medications Sodium Chloride 1,000 ml @ 70 mls/hr [id number] IV Last administered on 09/18/18at 00:01; Admin Dose 70 MLS/HR; Start 09/17/18 at 03:55 IV Flush (NS 3 ml) 3 ml PER PROTOCOL IV ; Start 09/17/18 at 04:00 Ondansetron HCl (Zofran Inj) 4 mg Q6H PRN IV NAUSEA/VOMITING; Start 09/17/18 at 04:00 Acetaminophen (Tylenol Tab) 650 mg Q6H PRN PO .PAIN 1-3 OR TEMP Last administered on 09/17/18at 20:27; Admin Dose 650 MG; Start 09/17/18 at 04:00 Morphine Sulfate (morphine) 2 mg Q4H PRN IV .SEVERE PAIN 7-10; Start 09/17/18 at 04:00 Levalbuterol (Xopenex Neb) 1.25 mg Q4H RESP THERAPY PRN HHN SHORTNESS OF BREATH; Start 09/17/18 at 04:00 Brimonidine Tartrate (Alphagan 0.2%) 1 drop BID LEFT EYE Last administered on 09/18/18at 09:19; Admin Dose 1 DROP; Start 09/17/18 at 09:00 Latanoprost (Xalatan) 1 drop DAILY BOTH EYES Last administered on 09/18/18at 09:19; Admin Dose 1 DROP; Start 09/17/18 at 09:00 Metoprolol Tartrate (Lopressor) 25 mg BID PO Last administered on 09/17/18at 20:26; Admin Dose 25 MG; Start 09/17/18 at 09:00 Pantoprazole (Protonix Tab) 40 mg DAILY@06 PO ; Start 09/17/18 at 07:00 Atorvastatin Calcium (Lipitor) 10 mg DAILY@21 PO Last administered on 09/17/18at 20:27; Admin Dose 10 MG; Start 09/17/18 at 21:00 Ferrous Sulfate (Ferrous Sulfate (Ec)) 325 mg BID PO Last administered on 09/17/18at 20:28; Admin Dose 325 MG; Start 09/17/18 at 09:00 Ferric Sodium Gluconate Complex 125 mg/Sodium Chloride 100 ml @ 100 mls/hr DAILY@1300 IVPB ; Start 09/18/18 at 13:00; Stop 09/20/18 at 13:59 Meds reviewed: Yes Allergies Coded Allergies: cyanocobalamin (vitamin B12) (Unverified Allergy, Unknown, SWELLING, 09/17/18) Allergies Reviewed: Yes Labs/Studies Labs Reviewed: Reviewed by anesthesiologist Result Diagram: 09/18/18 0456 09/18/18 0456 Laboratory Tests 09/18/18 04:56 test: N/A Pre-procedure Exam Last vitals Vital Signs Date Temp Pulse Resp B/P (MAP) Pulse Ox O2 O2 Flow FiO2 Time Delivery Rate 09/18/18 98.1 94 18 169/80 98 Room Air 12:49 (109) Airway: Adequate mouth opening Mallampati: Mallampati I Teeth: Abnormal (Full denture) Lung: Normal Heart: Normal ASA Physical Status ASA physical status: 3 Emergency: None Planned Anesthetic General/MAC: MAC Planned Pain Management Parenteral pain med Pre-operative Attestations Prior to commencing anesthesia and surgery, the patient was re-evaluated, there was verification of: *The patient's identity *The results of appropriate recent lab work and preoperative vital signs *The above evaluation not changing prior to induction *Anesthetic plan, risk benefits, alternative and complications discussed with pa tient/family; questions answered; patient/family understands, accepts and wishes to proceed. TRAM CYR MD Sep 18, 2018 12:58
[2018-09-18] MEDS ORDERED: PROPOFOL 40 ML ONE (13:02)
[2018-09-18] MEDS: SOD FERRIC GLUC COMPLX 125 MG in SOD CHLORIDE 0.9% 100 ML IVPB SCH (15:25)
--- NOTE | 2018-09-18 17:02 | PAC ---
Date/Time of Note Date/Time of Note DATE: 09/18/18 TIME: 17:02 Post-Anesthesia Notes Post-Anesthesia Note Last documented vital signs Vital Signs Date Temp Pulse Resp B/P (MAP) Pulse Ox O2 O2 Flow FiO2 Time Delivery Rate 09/18/18 98.2 102 21 113/53 97 15:01 (73) 09/18/18 Room Air 14:44 09/18/18 2.0 14:19 Activity: WNL Respiratory function: WNL Cardiovascular function: WNL Mental status: Baseline Pain reasonably controlled: Yes Hydration appropriate: Yes Nausea/Vomiting absent: Yes TRAM CYR MD Sep 18, 2018 17:02
--- NOTE | 2018-09-18 17:10 | CONS ---
DATE OF ADMISSION: 09/18/2018 DATE OF CONSULTATION: 09/18/2018 TYPE OF CONSULTATION: Gastroenterology. Dear Dr. Flynn: Thank you for asking me to see Mrs. Claros in GI consultation. As you know, the patient is a 77-y ear-old female admitted to the hospital because of rectal bleeding. She has been having mos tly dark red blood from the rectum. She has been taking at least 6 tablets of ibuprofen every day fo r the past several months for different kinds of aches and pains and on admission, her hemoglobin was found to be around 11.3. Subsequently, it dropped down to 7 grams. She also has history of upper r espiratory type of infection, history of laryngeal cancer in the past with metastatic disease to the lungs and history of kidney injury, diabetes, glaucoma, dyslipidemia, hypertension. PAST MEDICAL HISTORY: Includes that she has history of dysphagia and because of that, she had PEG pl acement in 2011 which subsequently came out and she has been able to eat for the past few years now o n her own. MEDICATIONS PRIOR TO ADMISSION: Include: 1. Tylenol. 2. Zofran. 3. Motrin at least 6 tablets a day. PAST SURGICAL HISTORY: Includes hysterectomy, laminectomy, , partial laryngectomy. SOCIAL HISTORY: The patient does not smoke or drink. PHYSICAL EXAMINATION: GENERAL: The patient is a 77-year-old [place] female who at this time is alert. CARDIOVASCULAR: Normal heart sounds. RESPIRATORY: Normal breath sounds. ABDOMEN: Shows soft abdomen with surgical scar in the abdomen. VITAL SIGNS: She is afebrile. Blood pressure 127/70, temperature is 98.1, pulse is 82. LABORATORY WORKUP: Hemoglobin dropped to 8.5 from 11. WBC count 9500. Platelet count is 291. Pota ssium 4.0, chloride is 112, sodium 144. Bilirubin 0.3, AST 14, ALT 22, alkaline phosphatase is 68. IMAGING STUDIES: Show CAT scan of the abdomen showing evidence of peribronchial nodular opacity in b oth lung trejo. Tiny gallstones were noted. Kidney stones were noted. Diffuse colonic diverticulo sis was noted. CLINICAL IMPRESSION: 1. Lower gastrointestinal bleeding, although it quite suggestive of gastrointestinal bleeding, in wh ich case diverticular bleeding is likely possibility. Colorectal neoplasm should be ruled out. Also , the patient has been taking 6 tablets of Motrin a day for quite some time. Rule out bleeding, pept ic ulcer disease, arteriovenous malformation of the gastrointestinal tract. 2. History of laryngeal carcinoma which is stable with metastatic disease. 3. History of small gallstones, diverticulosis. 4. History of diabetes. 5. Hypertension. 6. History of dyslipidemia. 7. Renal failure in the past. PLAN: At this time, I recommend PPI to be continued. Transfuse as needed. I recommend upper endosc opy as well as lower endoscopy. Once again, doctor, thank you for this consultation. Dictated By: NABEEL LAWRENCE MD NC/NTS Conf#: [id number] DID#: [id number] CC: MAGALY FLNYN MD;*EndCC*
[2018-09-18] MEDS: ACETAMINOPHEN 325 MG TAB PO PRN (19:21)
[2018-09-18] MEDS: ATORVASTATIN 10 MG TAB PO SCH (21:02)
[2018-09-18] MEDS: GUAIFENESIN/DM 5ML CUP PO PRN (23:07)
[2018-09-19 02:39] VITALS: BP 136/67; PULSE 94; RESP 18
[2018-09-19] MEDS: GUAIFENESIN/DM 5ML CUP PO PRN ×2 (03:39→09:27)
[2018-09-19] MEDS: ACETAMINOPHEN 325 MG TAB PO PRN ×3 (03:57→21:01)
[2018-09-19] MEDS: PANTOPRAZOLE (EC) 40 MG TAB PO SCH (06:06)
[2018-09-19 07:59] VITALS: BP 144/80; PULSE 96; RESP 20
[2018-09-19] MEDS: LATANOPROST 0.005% 2.5 ML OPH BOTH EYES SCH (08:09)
[2018-09-19] MEDS: BRIMONIDINE 0.2% 5 ML BTL LEFT EYE SCH ×2 (08:10→21:03)
[2018-09-19] MEDS: METOPROLOL 25 MG TAB PO SCH ×2 (08:10→21:02)
[2018-09-19] MEDS: FERROUS SULFATE (EC) 325 MG TAB PO SCH ×2 (08:10→21:01)
[2018-09-19] MEDS ORDERED: SOD CHLORIDE 0.9% 250 ML IV* ONE (10:28)
--- NOTE | 2018-09-19 10:32 | PN ---
Date/Time of Note Date/Time of Note DATE: 09/19/18 TIME: 10:26 Assessment/Plan VTE Prophylaxis Risk score (from [facility] [place])>0 risk: 3 SCD applied (from [facility] [place]): No Pharmacological prophylaxis: NA/contraindicated Pharm contraindication: other (ANEMIA) Lines/Catheters IV Catheter Type (from [facility]): Peripheral IV Assessment/Plan Hospital Course Assessment and plan 1. Rectal bleeding. - Suspect diverticular bleed versus hemorrhoids. - Continue IV hydration - monitor H&H - plan for colonoscopy 2. Suspect URI. - Patient afebrile at present. - Will provide with breathing treatments as needed. - No signs of fever at present. Suspect viral etiology. 3. Leukocytosis. - Likely reactive. Monitor trend. 4. 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 - Patient for outpatient f/u - CT imagin. Previously seen tracheal mass is no longer visualized. 2. Areas of scarring/fibrosis are present in the medial lung bilaterally, presumably sequela of radiation pneumonitis. 3. Indeterminate 6 mm right middle lobe pulmonary nodule is ident ified, increased in size when compared to the prior CT from 2014 - CT followup in 6-12 months is recommended to assess interval stability. (2017 Fleischner Society Criteria) 5. Acute on likely chronic kidney disease. - Monitor renal function. - Continue with hydration. Correct electrolytes as needed. 6. Diabetes. - Insulin regimen to be continued. 7. History of glaucoma. - Patient's home ophthalmologic medications to be continued. 8. Hyperlipidemia. - continue on statin. 9. Hypertension. Continue antihypertensives. 10. Anemia - transfuse 1 prbc Disposition and plan. transfuse 1 prbc. f/u GI recommendations. monitor H&H. Discussed POC with Dr. Hopkins Result Diagram: 09/19/18 0545 09/19/18 0545 Results 24hrs Laboratory Tests Test 09/19/18 05:45 White Blood Count 9.3 Red Blood Count 3.75 L Hemoglobin 7.4 L Hematocrit 24.6 L Mean Corpuscular Volume 65.6 L Mean Corpuscular Hemoglobin 19.7 L Mean Corpuscular Hemoglobin Concent 30.1 L Red Cell Distribution Width 16.0 H Platelet Count 284 Mean Platelet Volume 11.3 H Immature Granulocytes % 0.600 H Neutrophils % 70.8 Lymphocytes % 20.3 Monocytes % 7.8 Eosinophils % 0.2 Basophils % 0.3 Nucleated Red Blood Cells % 0.0 Immature Granulocytes # 0.060 H Neutrophils # 6.6 Lymphocytes # 1.9 Monocytes # 0.7 Eosinophils # 0.0 Basophils # 0.0 Nucleated Red Blood Cells # 0.0 Sodium Level 146 H Potassium Level 3.6 Chloride Level 111 H Carbon Dioxide Level 28 Anion Gap 7 Blood Urea Nitrogen 10 # Creatinine 0.81 Est Glomerular Filtrat Rate mL/min Glucose Level 118 Calcium Level 8.2 L Total Bilirubin 0.4 Direct Bilirubin 0.00 Indirect Bilirubin 0.4 Aspartate Amino Transf (AST/SGOT) 18 Alanine Aminotransferase (ALT/SGPT) 24 Alkaline Phosphatase 69 Total Protein 5.8 L Albumin 3.1 L Globulin 2.70 Albumin/Globulin Ratio 1.14 Subjective 24 Hr Interval Summary Free Text/Dictation patient reports having some dry cough Exam/Review of Systems Exam Vitals Vital Signs Date Temp Pulse Resp B/P (MAP) Pulse Ox O2 O2 Flow FiO2 Time Delivery Rate 09/19/18 98.3 96 20 144/80 98 07:59 (101) 09/18/18 Room Air 14:44 09/18/18 2.0 14:19 Intake and Output 09/18/18 09/18/18 09/19/18 1515:00 23:00 07:00 IntakeIntake Total 1270 ml 1058 ml OutputOutput Total 2 ml BalanceBalance 1268 ml 1058 ml Exam Constitutional: alert, oriented Psych: nl mood/affect Head: normocephalic Neck: supple, non-tender Respiratory: normal air movement Cardiovascular: regular rate and rhythm Gastrointestinal: soft, non-tender Musculoskeletal: No muscle weakness Neurological: POISER II-XII intact, nl mental status, nl speech Results Results 24hrs Laboratory Tests Test 09/19/18 05:45 White Blood Count 9.3 Red Blood Count 3.75 L Hemoglobin 7.4 L Hematocrit 24.6 L Mean Corpuscular Volume 65.6 L Mean Corpuscular Hemoglobin 19.7 L Mean Corpuscular Hemoglobin Concent 30.1 L Red Cell Distribution Width 16.0 H Platelet Count 284 Mean Platelet Volume 11.3 H Immature Granulocytes % 0.600 H Neutrophils % 70.8 Lymphocytes % 20.3 Monocytes % 7.8 Eosinophils % 0.2 Basophils % 0.3 Nucleated Red Blood Cells % 0.0 Immature Granulocytes # 0.060 H Neutrophils # 6.6 Lymphocytes # 1.9 Monocytes # 0.7 Eosinophils # 0.0 Basophils # 0.0 Nucleated Red Blood Cells # 0.0 Sodium Level 146 H Potassium Level 3.6 Chloride Level 111 H Carbon Dioxide Level 28 Anion Gap 7 Blood Urea Nitrogen 10 # Creatinine 0.81 Est Glomerular Filtrat Rate mL/min Glucose Level 118 Calcium Level 8.2 L Total Bilirubin 0.4 Direct Bilirubin 0.00 Indirect Bilirubin 0.4 Aspartate Amino Transf (AST/SGOT) 18 Alanine Aminotransferase (ALT/SGPT) 24 Alkaline Phosphatase 69 Total Protein 5.8 L Albumin 3.1 L Globulin 2.70 Albumin/Globulin Ratio 1.14 Medications Medication Current Medications Sodium Chloride 1,000 ml @ 70 mls/hr [id number] IV Last administered on 09/18/18at 21:03; Admin Dose 70 MLS/HR; Start 09/17/18 at 03:55 IV Flush (NS 3 ml) 3 ml PER PROTOCOL IV ; Start 09/17/18 at 04:00 Ondansetron HCl (Zofran Inj) 4 mg Q6H PRN IV NAUSEA/VOMITING; Start 09/17/18 at 04:00 Acetaminophen (Tylenol Tab) 650 mg Q6H PRN PO .PAIN 1-3 OR TEMP Last administered on 09/19/18at 09:57; Admin Dose 650 MG; Start 09/17/18 at 04:00 Morphine Sulfate (morphine) 2 mg Q4H PRN IV .SEVERE PAIN 7-10; Start 09/17/18 at 04:00 Levalbuterol (Xopenex Neb) 1.25 mg Q4H RESP THERAPY PRN HHN SHORTNESS OF BREATH; Start 09/17/18 at 04:00 Brimonidine Tartrate (Alphagan 0.2%) 1 drop BID LEFT EYE Last administered on 09/19/18 08:10; Admin Dose 1 DROP; Start 09/17/18 at 09:00 Latanoprost (Xalatan) 1 drop DAILY BOTH EYES Last administered on 09/19/18 08:09; Admin Dose 1 DROP; Start 09/17/18 at 09:00 Metoprolol Tartrate (Lopressor) 25 mg BID PO Last administered on 09/19/18 08:10; Admin Dose 25 MG; Start 6/20/19 at 09:00 Pantoprazole (Protonix Tab) 40 mg DAILY@06 PO Last administered on 09/19/18at 06:06; Admin Dose 40 MG; Start 09/17/18 at 07:00 Atorvastatin Calcium (Lipitor) 10 mg DAILY@21 PO Last administered on 09/18/18at 21:02; Admin Dose 10 MG; Start 09/17/18 at 21:00 Ferrous Sulfate (Ferrous Sulfate (Ec)) 325 mg BID PO Last administered on 09/19/18at 08:10; Admin Dose 325 MG; Start 09/17/18 at 09:00 Ferric Sodium Gluconate Complex 125 mg/Sodium Chloride 100 ml @ 100 mls/hr DAILY@1300 IVPB Last administered on 09/18/18at 15:25; Admin Dose 100 MLS/HR; Start 09/18/18 at 13:00; Stop 09/20/18 at 13:59 Guaifenesin/ Dextromethorphan (Robitussin Dm Liquid Cup) 5 ml Q4H PRN PO COUGH Last administered on 09/19/18at 09:27; Admin Dose 5 ML; Start 09/18/18 at 22:40; Stop 09/19/18 at 22:40 HIEU SHRESTHA NP Sep 19, 2018 10:32
[2018-09-19] MEDS: GUAIFENESIN LA 600 MG TABSR PO SCH ×2 (10:58→21:01)
[2018-09-19] MEDS ORDERED: DIPHENHYDRAMINE 50 MG INJ IV ONE (14:00)
[2018-09-19] MEDS: SOD CHLORIDE 0.9% 1,000 ML IV SCH (14:59)
[2018-09-19] MEDS: SOD FERRIC GLUC COMPLX 125 MG in SOD CHLORIDE 0.9% 100 ML IVPB SCH (14:59)
[2018-09-19 15:02] VITALS: BP 148/76; PULSE 79; RESP 20
[2018-09-19 20:45] VITALS: BP 133/81; PULSE 90; RESP 18
[2018-09-19] MEDS: ATORVASTATIN 10 MG TAB PO SCH (21:01)
[2018-09-20 01:22] VITALS: BP 153/83; PULSE 79; RESP 18
[2018-09-20] MEDS: SOD CHLORIDE 0.9% 1,000 ML IV SCH ×2 (03:25→08:46)
[2018-09-20] MEDS: GUAIFENESIN 20 MG/ML 5ML CUP PO PRN ×3 (04:42→15:08)
[2018-09-20] MEDS: PANTOPRAZOLE (EC) 40 MG TAB PO SCH (05:30)
[2018-09-20 08:07] VITALS: BP 145/70; PULSE 104; RESP 20
[2018-09-20] MEDS: FERROUS SULFATE (EC) 325 MG TAB PO SCH ×2 (08:46→21:21)
[2018-09-20] MEDS: GUAIFENESIN LA 600 MG TABSR PO SCH ×2 (08:46→21:21)
[2018-09-20] MEDS: LATANOPROST 0.005% 2.5 ML OPH BOTH EYES SCH (08:47)
[2018-09-20] MEDS: BRIMONIDINE 0.2% 5 ML BTL LEFT EYE SCH ×2 (08:47→21:22)
[2018-09-20] MEDS: METOPROLOL 25 MG TAB PO SCH ×2 (08:47→21:22)
[2018-09-20] MEDS: ACETAMINOPHEN 325 MG TAB PO PRN (10:54)
[2018-09-20] MEDS: SOD FERRIC GLUC COMPLX 125 MG in SOD CHLORIDE 0.9% 100 ML IVPB SCH (12:59)
[2018-09-20 13:32] VITALS: BP 137/81; PULSE 91; RESP 20
--- NOTE | 2018-09-20 13:49 | PN ---
Date/Time of Note Date/Time of Note DATE: 09/20/18 TIME: 13:45 Assessment/Plan VTE Prophylaxis Risk score (from [facility] [place])>0 risk: 5 SCD applied (from [facility] [place]): Yes Pharm contraindication: other (had anemia) Lines/Catheters IV Catheter Type (from [facility]): Peripheral IV Assessment/Plan Hospital Course Assessment and plan 1. Rectal bleeding. - Suspect diverticular bleed versus hemorrhoids. - Continue IV hydration - monitor H&H - s/p colonoscopy/egd. f/u GI recommendations 2. Suspect URI. - was febrile. monitor trend - Will provide with breathing treatments as needed. - Suspect viral etiology? 3. Leukocytosis. - Likely reactive. Monitor trend. 4. 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 - Patient for outpatient f/u - CT imagin. Previously seen tracheal mass is no longer visualized. 2. Areas of scarring/fibrosis are present in the medial lung bi laterally, presumably sequela of radiation pneumonitis. 3. Indeterminate 6 mm right middle lobe pulmonary nodule is identified, increased in size when compared to the prior CT from 2013 - CT follo wup in 6-12 months is recommended to assess interval stability. (2017 Fleischner Society Criteria) 5. Acute on likely chronic kidney disease. - Monitor renal function. - Continue with hydration. Correct electrolytes as needed. 6. Diabetes. - Insulin regimen to be continued. 7. History of glaucoma. - Patient's home ophthalmologic medications to be continued. 8. Hyperlipidemia. - continue on statin. 9. Hypertension. Continue antihypertensives. 10. Anemia - improved - monitor trend Disposition and plan. advanced diet. Awaiting PT eval. Monitor H&H trend. f/u GI. Discussed POC with Dr. Hopkins Result Diagram: 09/20/18 0603 09/20/18 0603 Results 24hrs Laboratory Tests Test 09/20/18 06:03 White Blood Count 12.9 #H Red Blood Count 4.79 # Hemoglobin 10.3 #L Hematocrit 33.8 #L Mean Corpuscular Volume 70.6 L Mean Corpuscular Hemoglobin 21.5 L Mean Corpuscular Hemoglobin Concent 30.5 L Red Cell Distribution Width 20.6 #H Platelet Count 271 Mean Platelet Volume 11.0 H Immature Granulocytes % 0.700 H Neutrophils % 75.3 Lymphocytes % 18.3 Monocytes % 5.3 Eosinophils % 0.1 Basophils % 0.3 Nucleated Red Blood Cells % 0.0 Immature Granulocytes # 0.090 H Neutrophils # 9.7 H Lymphocytes # 2.4 Monocytes # 0.7 Eosinophils # 0.0 Basophils # 0.0 Nucleated Red Blood Cells # 0.0 Sodium Level 140 Potassium Level 3.6 Chloride Level 104 Carbon Dioxide Level 27 Anion Gap 9 Blood Urea Nitrogen 7 Creatinine 0.81 Est Glomerular Filtrat Rate mL/min Glucose Level 97 Calcium Level 8.3 L Total Bilirubin 0.4 Direct Bilirubin 0.00 Indirect Bilirubin 0.4 Aspartate Amino Transf (AST/SGOT) 30 Alanine Aminotransferase (ALT/SGPT) 21 Alkaline Phosphatase 85 Total Protein 6.9 # Albumin 3.6 Globulin 3.30 H Albumin/Globulin Ratio 1.09 Subjective 24 Hr Interval Summary Free Text/Dictation reports feeling weak and hungry Exam/Review of Systems Exam Vitals Vital Signs Date Temp Pulse Resp B/P (MAP) Pulse Ox O2 O2 Flow FiO2 Time Delivery Rate 09/20/18 98.8 91 20 137/81 94 13:32 (99) 09/18/18 Room Air 14:44 09/18/18 2.0 14:19 Intake and Output 09/19/18 09/19/18 09/20/18 1515:00 23:00 07:00 IntakeIntake Total 1538 ml 200 ml 750 ml BalanceBalance 1538 ml 200 ml 750 ml Exam Exam Constitutional: alert, oriented Psych: nl mood/affect Head: normocephalic Neck: supple, non-tender Respiratory: normal air movement Cardiovascular: regular rate and rhythm Gastrointestinal: soft, non-tender Musculoskeletal: No muscle weakness Neurological: [employer] II-XII intact, nl mental status, nl speech Results Results 24hrs Laboratory Tests Test 09/20/18 06:03 White Blood Count 12.9 #H Red Blood Count 4.79 # Hemoglobin 10.3 #L Hematocrit 33.8 #L Mean Corpuscular Volume 70.6 L Mean Corpuscular Hemoglobin 21.5 L Mean Corpuscular Hemoglobin Concent 30.5 L Red Cell Distribution Width 20.6 #H Platelet Count 271 Mean Platelet Volume 11.0 H Immature Granulocytes % 0.700 H Neutrophils % 75.3 Lymphocytes % 18.3 Monocytes % 5.3 Eosinophils % 0.1 Basophils % 0.3 Nucleated Red Blood Cells % 0.0 Immature Granulocytes # 0.090 H Neutrophils # 9.7 H Lymphocytes # 2.4 Monocytes # 0.7 Eosinophils # 0.0 Basophils # 0.0 Nucleated Red Blood Cells # 0.0 Sodium Level 140 Potassium Level 3.6 Chloride Level 104 Carbon Dioxide Level 27 Anion Gap 9 Blood Urea Nitrogen 7 Creatinine 0.81 Est Glomerular Filtrat Rate mL/min Glucose Level 97 Calcium Level 8.3 L Total Bilirubin 0.4 Direct Bilirubin 0.00 Indirect Bilirubin 0.4 Aspartate Amino Transf (AST/SGOT) 30 Alanine Aminotransferase (ALT/SGPT) 21 Alkaline Phosphatase 85 Total Protein 6.9 # Albumin 3.6 Globulin 3.30 H Albumin/Globulin Ratio 1.09 Medications Medication Current Medications Sodium Chloride 1,000 ml @ 70 mls/hr [id number] IV Last administered on 09/20/18 08:46; Admin Dose 70 MLS/HR; Start 09/17/18 at 03:55; Stop 09/23/18 at 01:05 IV Flush (NS 3 ml) 3 ml PER PROTOCOL IV ; Start 09/17/18 at 04:00 Ondansetron HCl (Zofran Inj) 4 mg Q6H PRN IV NAUSEA/VOMITING; Start 09/17/18 at 04:00 Acetaminophen (Tylenol Tab) 650 mg Q6H PRN PO .PAIN 1-3 OR TEMP Last administered on 09/20/18at 10:54; Admin Dose 650 MG; Start 09/17/18 at 04:00 Morphine Sulfate (morphine) 2 mg Q4H PRN IV .SEVERE PAIN 7-10 Last administered on 09/19/18at 13:41; Admin Dose 2 MG; Start 09/17/18 at 04:00 Levalbuterol (Xopenex Neb) 1.25 mg Q4H RESP THERAPY PRN HHN SHORTNESS OF B REATH; Start 09/17/18 at 04:00 Brimonidine Tartrate (Alphagan 0.2%) 1 drop BID LEFT EYE Last administered on 09/20/18at 08:47; Admin Dose 1 DROP; Start 09/17/18 at 09:00 Latanoprost (Xalatan) 1 drop DAILY BOTH EYES Last administered on 09/20/18 08:47; Admin Dose 1 DROP; Start 09/17/18 at 09:00 Metoprolol Tartrate (Lopressor) 25 mg BID PO Last administered on 09/20/18 08:47; Admin Dose 25 MG; Start 09/17/18 at 09:00 Pantoprazole (Protonix Tab) 40 mg DAILY@06 PO Last administered on 09/20/18 05:30; Admin Dose 40 MG; Start 09/17/18 at 07:00 Atorvastatin Calcium (Lipitor) 10 mg DAILY@21 PO Last administered on 09/19/18 21:01; Admin Dose 10 MG; Start 09/17/18 at 21:00 Ferrous Sulfate (Ferrous Sulfate (Ec)) 325 mg BID PO Last administered on 09/20/18 08:46; Admin Dose 325 MG; Start 09/17/18 at 09:00 Ferric Sodium Gluconate Complex 125 mg/Sodium Chloride 100 ml @ 100 mls/hr DAILY@1300 IVPB Last administered on 09/20/18 12:59; Admin Dose 100 MLS/HR; Start 09/18/18 at 13:00; Stop 09/20/18 at 13:59 Guaifenesin (Mucinex) 600 mg BID PO Last administered on 09/20/18 08:46; Admin Dose 600 MG; Start 09/19/18 at 10:30 Guaifenesin (Robitussin Liquid Cup) 200 mg Q4H PRN PO COUGH Last administered on 09/20/18 10:53; Admin Dose 200 MG; Start 09/20/18 at 04:30; Stop 09/21/18 at 04:30 HIEU SHRESTHA NP Sep 20, 2018 13:49
[2018-09-20] MEDS: HYDROCODONE/APAP (5/325) TAB PO PRN ×2 (15:15→21:22)
[2018-09-20 20:03] VITALS: BP 186/92; PULSE 89; RESP 18
[2018-09-20] MEDS: ATORVASTATIN 10 MG TAB PO SCH (21:21)
[2018-09-20] MEDS ORDERED: ZOLPIDEM 5 MG TAB PO PRN (22:30)
[2018-09-21 02:00] VITALS: BP 119/56; PULSE 77; RESP 18
[2018-09-21] MEDS: SOD CHLORIDE 0.9% 1,000 ML IV SCH (03:06)
[2018-09-21] MEDS: PANTOPRAZOLE (EC) 40 MG TAB PO SCH (06:06)
[2018-09-21 08:10] VITALS: BP 133/81; PULSE 96; RESP 20
[2018-09-21] MEDS: GUAIFENESIN LA 600 MG TABSR PO SCH ×2 (09:29→20:36)
[2018-09-21] MEDS: FERROUS SULFATE (EC) 325 MG TAB PO SCH ×2 (09:29→20:35)
[2018-09-21] MEDS: LATANOPROST 0.005% 2.5 ML OPH BOTH EYES SCH (09:30)
[2018-09-21] MEDS: METOPROLOL 25 MG TAB PO SCH ×2 (09:30→20:36)
[2018-09-21] MEDS: BRIMONIDINE 0.2% 5 ML BTL LEFT EYE SCH ×2 (09:30→20:36)
[2018-09-21] MEDS: HYDROCODONE/APAP (5/325) TAB PO PRN ×2 (09:39→17:38)
[2018-09-21] MEDS: ONDANSETRON 4 MG INJ IV PRN (12:35)
[2018-09-21 14:05] VITALS: BP 154/74; PULSE 72; RESP 19
--- NOTE | 2018-09-21 17:03 | PN ---
Date/Time of Note Date/Time of Note DATE: 09/21/18 TIME: 17:01 Assessment/Plan VTE Prophylaxis Risk score (from [facility])>0 risk: 5 SCD applied (from [facility]): Yes Pharmacological prophylaxis: NA/contraindicated Pharm contraindication: bleeding Lines/Catheters IV C[facility]ter Type (from [facility]): Peripheral IV Assessment/Plan Hospital Course SUBJECTIVE: Denies any melena. Continues to have a cough. OBJECTIVE: Physical Exam General: Adequately build 77 year-old female lying in bed in no apparent distress. HEENT: Normocephalic, atraumatic. Eyes: Anicteric sclerae, conjunctivae clear. ENT: Nasal septum midline, oral mucosa moist. Neck supple, no JVD noticed. Respiratory: Bilaterally diminished breath sounds. No use of accessory muscles of respiration. No adventitious breath sounds. Cardiovascular: S1, S2 heard. Regular rate and rhythm. Abdomen: Soft, nontender, and nondistended. Bowel sounds positive in all 4 quadrants. Genitourinary: Deferred. Extremities: No cyanosis, no clubbing, no edema. Peripheral pulses palpable. Neurologic: Cranial nerves II through XII grossly intact. The patient is awake, alert, and oriented. Skin: Normal skin turgor. No skin rashes. Labs & Vitals per chart ASSESSMENT & PLAN 77-year-old female with comorbidities including diabetes mellitus, dyslipidemia, hypertension, and remote history of laryngeal cancer with metastasis to the lung, who came to the emergency room with chief complaint of hematochezia with C T showing extensive diffuse colonic diverticulosis with underlying anemia, who was admitted to inpatient setting for further evaluation. 1. Melena. Most probably a poor diverticular bleed. Status post colonoscopy on 09/18/2018 with poor preparation. Continue diverticular diet. Status post 1 unit of PRBC transfusion. 2. Esophagitis. Continue PPI. 3. Anemia. Etiology could be multifactorial including anemia of acute blood loss and underlying iron deficiency. Status post PRBC transfusion. Continue iron supplements. 4. Diabetes mellitus type 2. Hemoglobin A1c 7.7. Continue metformin. 5. Hypertension. Continue antihypertensives. 6. Remote history of laryngeal cancer with lung metastasis. CT scan showing areas of scarring/fibrosis with the no evidence of previously seen tracheal mass but a 6 mm right middle lobe pulmonary nodule. Outpatient follow-up. 7. Dyslipidemia. Continue statins. 8. Possible reactive airway disease. Continue inhaled bronchodilators and antitussives. 9. Fluids, electrolytes, and nutrition. Carbohydrate controlled diet. 10. DVT prophylaxis. Bilateral SCDs. 11. Plan. Continue PPI. Continue physical therapy. Disposition: To home once clinically stable. The patient was seen in collaboration with Dr. Baxter. Result Diagram: 09/21/18 0536 09/21/18 0536 Results 24hrs Laboratory Tests Test 09/21/18 05:36 09/21/18 06:03 09/21/18 13:25 White Blood Count 7.7 # Red Blood Count 4.25 Hemoglobin 9.3 L Hematocrit 29.8 L Mean Corpuscular Volume 70.1 L Mean Corpuscular Hemoglobin 21.9 L Mean Corpuscular 31.2 L Hemoglobin Concent Red Cell Distribution Width 20.8 H Platelet Count 256 Mean Platelet Volume 11.2 H Immature Granulocytes % 0.800 H Neutrophils % 62.1 Lymphocytes % 28.8 Monocytes % 7.6 Eosinophils % 0.3 Basophils % 0.4 Nucleated Red Blood Cells % 0.0 Immature Granulocytes # 0.060 H Neutrophils # 4.8 Lymphocytes # 2.2 Monocytes # 0.6 Eosinophils # 0.0 Basophils # 0.0 Nucleated Red Blood Cells # 0.0 Sodium Level 142 Potassium Level 3.5 Chloride Level 106 Carbon Dioxide Level 27 Anion Gap 9 Blood Urea Nitrogen 14 Creatinine 0.84 Est Glomerular Filtrat Rate mL/min Glucose Level 101 Calcium Level 8.0 L Lab Scanned Report BLOOD TRANSFUSION Bedside Glucose 179 Exam/Review of Systems Exam Vitals Vital Signs Date Temp Pulse Resp B/P (MAP) Pulse Ox O2 O2 Flow FiO2 Time Delivery Rate 09/21/18 98.2 72 19 154/74 92 14:05 (100) 09/18/18 Room Air 14:44 09/18/18 2.0 14:19 Intake and Output 09/20/18 09/20/18 09/21/18 1515:00 23:00 07:00 IntakeIntake Total 870 ml 1020 ml 1130 ml BalanceBalance 870 ml 1020 ml 1130 ml Results Results 24hrs Laboratory Tests Test 09/21/18 05:36 09/21/18 06:03 09/21/18 13:25 White Blood Count 7.7 # Red Blood Count 4.25 Hemoglobin 9.3 L Hematocrit 29.8 L Mean Corpuscular Volume 70.1 L Mean Corpuscular Hemoglobin 21.9 L Mean Corpuscular 31.2 L Hemoglobin Concent Red Cell Distribution Width 20.8 H Platelet Count 256 Mean Platelet Volume 11.2 H Immature Granulocytes % 0.800 H Neutrophils % 62.1 Lymphocytes % 28.8 Monocytes % 7.6 Eosinophils % 0.3 Basophils % 0.4 Nucleated Red Blood Cells % 0.0 Immature Granulocytes # 0.060 H Neutrophils # 4.8 Lymphocytes # 2.2 Monocytes # 0.6 Eosinophils # 0.0 Basophils # 0.0 Nucleated Red Blood Cells # 0.0 Sodium Level 142 Potassium Level 3.5 Chloride Level 106 Carbon Dioxide Level 27 Anion Gap 9 Blood Urea Nitrogen 14 Creatinine 0.84 Est Glomerular Filtrat Rate mL/min Glucose Level 101 Calcium Level 8.0 L Lab Scanned Report BLOOD TRANSFUSION Bedside Glucose 179 Medications Medication Current Medications Sodium Chloride 1,000 ml @ 70 mls/hr [id number] IV Last administered on 09/21/18 03:06; Admin Dose 70 MLS/HR; Start 09/17/18 at 03:55; Stop 09/23/18 at 01:05 IV Flush (NS 3 ml) 3 ml PER PROTOCOL IV ; Start 09/17/18 at 04:00 Ondansetron HCl (Zofran Inj) 4 mg Q6H PRN IV NAUSEA/VOMITING Last administered on 09/21/18 12:35; Admin Dose 4 MG; Start 09/17/18 at 04:00 Acetaminophen (Tylenol Tab) 650 mg Q6H PRN PO .PAIN 1-3 OR TEMP Last administered on 09/20/18at 10:54; Admin Dose 650 MG; Start 09/17/18 at 04:00 Morphine Sulfate (morphine) 2 mg Q4H PRN IV .SEVERE PAIN 7-10 Last administered on 09/19/18at 13:41; Admin Dose 2 MG; Start 09/17/18 at 04:00 Levalbuterol (Xopenex Neb) 1.25 mg Q4H RESP THERAPY PRN HHN SHORTNESS OF BREATH; Start 09/17/18 at 04:00 Brimonidine Tartrate (Alphagan 0.2%) 1 drop BID LEFT EYE Last administered on 09/21/18 09:30; Admin Dose 1 DROP; Start 09/17/18 at 09:00 Latanoprost (Xalatan) 1 drop DAILY BOTH EYES Last administered on 09/21/18 09:30; Admin Dose 1 DROP; Start 09/17/18 at 09:00 Metoprolol Tartrate (Lopressor) 25 mg BID PO Last administered on 09/21/18 09:30; Admin Dose 25 MG; Start 09/17/18 at 09:00 Pantoprazole (Protonix Tab) 40 mg DAILY@06 PO Last administered on 09/21/18 06:06; Admin Dose 40 MG; Start 09/17/18 at 07:00 Atorvastatin Calcium (Lipitor) 10 mg DAILY@21 PO Last administered on 09/20/18 21:21; Admin Dose 10 MG; Start 09/17/18 at 21:00 Ferrous Sulfate (Ferrous Sulfate (Ec)) 325 mg BID PO Last administered on 09/21/18 09:29; Admin Dose 325 MG; Start 09/17/18 at 09:00 Guaifenesin (Mucinex) 600 mg BID PO Last administered on 09/21/18 09:29; Admin Dose 600 MG; Start 09/19/18 at 10:30 Acetaminophen/ Hydrocodone Bitart ([place] (5/325)) 1 tab Q6H PRN PO MODERATE PAIN LEVEL 4-6 Last administered on 09/21/18 09:39; Admin Dose 1 TAB; Start 09/20/18 at 15:07 Zolpidem Tartrate (Ambien) 5 mg HS PRN PO INSOMNIA Last administered on 09/20/18 22:54; Admin Dose 5 MG; Start 09/20/18 at 22:30 ROCKY CLIFFORD NP Sep 21, 2018 17:03
[2018-09-21] MEDS: metFORMIN 500 MG TAB PO SCH (17:40)
[2018-09-21 20:24] VITALS: BP 152/75; PULSE 80; RESP 18
[2018-09-21] MEDS: ATORVASTATIN 10 MG TAB PO SCH (20:35)
[2018-09-22] MEDS: HYDROCODONE/APAP (5/325) TAB PO PRN ×2 (00:26→11:16)
[2018-09-22 01:48] VITALS: BP 142/65; PULSE 76; RESP 18
[2018-09-22] MEDS: ONDANSETRON 4 MG INJ IV PRN (05:16)
[2018-09-22] MEDS: PANTOPRAZOLE (EC) 40 MG TAB PO SCH (05:19)
[2018-09-22 08:03] VITALS: BP 162/76; PULSE 83; RESP 20
[2018-09-22] MEDS: LATANOPROST 0.005% 2.5 ML OPH BOTH EYES SCH (08:49)
[2018-09-22] MEDS: GUAIFENESIN LA 600 MG TABSR PO SCH (08:51)
[2018-09-22] MEDS: FERROUS SULFATE (EC) 325 MG TAB PO SCH (08:51)
[2018-09-22] MEDS: metFORMIN 500 MG TAB PO SCH (08:51)
[2018-09-22] MEDS: BRIMONIDINE 0.2% 5 ML BTL LEFT EYE SCH (08:52)
[2018-09-22] MEDS: METOPROLOL 25 MG TAB PO SCH (08:52)
[2018-09-22] MEDS ORDERED: PANT40TA4 PO (10:25)
[2018-09-22] MEDS ORDERED: ONDA4TAB8 PO (10:29)
--- NOTE | 2018-09-22 10:35 | PDOCDIS ---
Discharge Instructions CONDITION [id number] Patient Condition: [id number] Stable HOME CARE INSTRUCTIONS: [id number] Diet Instructions: [id number] Low Fat /Cholesterol [id number] Special Diet: [id number] Low carbohydrate FOLLOW UP/APPOINTMENTS Follow-up Plan Jeremias Toure MD Specialty: Gastroenterology Office Address [address] [place], [place] [id number] Office OTHER ORDERS: Other Orders: 1. Resume home medications. Start taking Protonix. 2. Follow a low-cholesterol, low carbohydrate diet (diverticular diet). 3. Follow-up with Dr. Toure in 4 weeks for a repeat colonoscopy. 4. Follow-up with your primary care physician in 2 weeks. 5. Please go to the nearest emergency room if you have significant abdominal pain, blood in stool, or any other unusual signs/symptoms. 6. Resume activities as tolerated. ROCKY CLIFFORD NP Sep 22, 2018 10:35
--- NOTE | 2018-09-22 10:40 | DS ---
Date/Time of Note Date/Time of Note DATE: 09/22/18 TIME: 10:38 Discharge Summary Admission/Discharge Info Admit Date/Time Sep 18, 2018 at 09:59 Discharge Date/Time Discharge Diagnosis 1. Melena. 2. Diverticulosis. 3. Esophagitis. 4. Microcytic, hypochromic anemia. 5. Iron deficiency. 6. Diabetes mellitus type 2. Hemoglobin A1c 7.7. 7. Hypertension. 8. Remote history of laryngeal cancer with lung metastasis. 9. Dyslipidemia. Patient Condition: Stable Consults 1. Jeremias Toure MD, Gastroenterology. Procedures Esophagogastroduodenoscopy on 09/18/2018 Impression: Esophagitis. Colonoscopy on 09/18/2018 Impression: Diffuse diverticulosis. Dark stools. Suboptimal preparation. Chest CT with IV Contrast IMPRESSION: 1. Previously seen tracheal mass is no longer visualized. 2. Areas of scarring/fibrosis are present in the medial lung bilaterally, presumably sequela of radiation pneumonitis. 3. Indeterminate 6 mm right middle lobe pulmonary nodule is identified, increased in size when compared to the prior CT from 2013 - CT followup in 6-12 months is recommended to assess interval stability. (2017 Fleischner Society Criteria) 4. Coronary arterial and aortic atherosclerotic calcifications. 5. Cholelithiasis, without evidence for cholecystitis. Hx of Present Illness This is a 77-year-old female with comorbidities including diabetes mellitus, dyslipidemia, hypertension, and remote history of laryngeal cancer with metastasis to the lung, who came to the emergency room with chief complaint of hematochezia with CT showing extensive diffuse colonic diverticulosis with underlying anemia, who was admitted to inpatient setting for further evaluation. Hospital Course The patient had evidence of underlying diverticulosis without any evidence of underlying diverticulitis. The patient was not started on any antimicrobials. The patient was provided with 1 unit of PRBC transfusion because of her underlying anemia. The patient's anemia could be multifactorial including underlying anemia of acute blood loss and the underlying iron deficiency. The patient was maintained on iron supplements. A gastroenterology consult was o btained. The patient underwent an esophagogastroduodenoscopy and colonoscopy on 09/18/2018. The patient's esophagogastroduodenoscopy showed esophagitis. No biopsies were taken. The patient's colonoscopy was showing multiple diverticulosis without any evidence of diverticulitis. The patient had suboptimal preparation. Therefore, the patient may need to have a repeat colonoscopy in the near future. The patient's chronic problems include diabetes mellitus type 2. The patient's hemoglobin A1c was found to be 7.7. She was maintained on metformin. She has underlying hypertension. The patient was maintained on antihypertensives for the same. The patient has a remote history of laryngeal cancer with metastasis to the lungs. The patient underwent a CT scan of the chest that was showing a 6 mm right middle lobe pulmonary nodule. The patient has underlying dyslipidemia. The patient was maintained on statins for the same. The patient was maintained on inhaled bronchodilators and cough medicines because of possible underlying reactive upper airway disease that improved throughout the patient's hospital course. The patient was also noted to be debilitated. Therefore, she was evaluated by physical therapy. [facility] was ordered for home physical therapy and home safety evaluation upon discharge. The patient had a stable hospital course. The patient has no longer reported any melena. The patient's H&H remained stable. The patient is stable for outpatient management. Discharge Instructions 1. Resume home medications. Start taking Protonix. 2. Follow a low-cholesterol, low carbohydrate diet (diverticular diet). 3. Follow-up with Dr. Toure in 4 weeks for a repeat colonoscopy. 4. Follow-up with your primary care physician in 2 weeks. 5. Please go to the nearest emergency room if you have significant abdominal pain, blood in stool, or any other unusual signs/symptoms. 6. Resume activities as tolerated. The patient verbalized understanding of her discharge instructions. At this time I would like to thank Dr. Toure for seeing the patient, doing the necessary procedures, and providing clinical recommendations. The patient was seen in collaboration with Dr. Baxter. Home Meds Active Scripts Ferrous Sulfate* (Ferrous Sulfate*) 325 Mg Tabec, 325 MG PO BID, #60 TAB Prov:ROCKY CLIFFORD NP 09/22/18 Ondansetron Hcl* (Zofran*) 4 Mg Tablet, 4 MG PO Q6H PRN for NAUSEA AND OR VOMITING, #10 TAB Prov:ROCKY CLIFFORD NP 09/22/18 Pantoprazole* (Pantoprazole*) 40 Mg Tablet., 40 MG PO DAILY@06, #30 TAB Prov:ROCKY CLIFFORD NP 09/22/18 Reported Medications Brimonidine Tartrate* (Brimonidine Tartrate*) 0.2%-15ML Drop Opht, 1 DROP LEFT EYE BID, #1 EA 04/04/17 Latanoprost (Latanoprost) 2.5 Ml Drops, 1 DROP BOTH EYES DAILY, #1 BOTTLE 03/25/17 Calcium Carbonate* ([place]-500*) 1 Tab Tablet, 1 TAB PO BID, TAB 09/18/15 Simvastatin* (Zocor*) 20 Mg Tablet, 20 MG PO QHS, #30 TAB 09/18/15 Ergocalciferol (Vitamin D2) (VITAMIN D2) 2,000 Unit Tablet, 2000 UNIT PO DAILY, TAB 09/18/15 Metoprolol Tartrate* (Lopressor*) 25 Mg Tab, 25 MG PO BID, #60 TAB 09/18/15 Metformin* (Glucophage*) 500 Mg Tab, 500 MG PO WITH BREAKFAST DINNE, #30 TAB 09/18/15 Discontinued Reported Medications Omeprazole* (Omeprazole*) 20 Mg Capsule.dr, 20 MG PO DAILY, #30 CAP 09/18/15 Amlodipine Besylate* (Amlodipine Besylate*) 10 Mg Tablet, 10 MG PO DAILY, #30 TAB 09/18/15 Follow-up Plan Jeremias Toure MD Specialty: Gastroenterology Office Address [address] [place] [address] Office Primary Care Provider Not On Staff Doctor Time spent on discharge: > 30 minutes Pending Labs Laboratory Tests Test 09/21/18 13:25 09/21/18 17:40 09/22/18 04:38 09/22/18 08:48 Bedside 179 148 184 Glucose mg/dL (70-220) mg/dL (70-220) mg/dL (70-220) White Blood 9.2 Count 10^3/ul (4.8-1 0.8) Red Blood 4.48 Count 10^6/ul (4.20- 5.40) Hemoglobin 9.6 g/dl (12.0-16. 0) Hematocrit 31.1 % (37.0-47.0) Mean 69.4 Corpuscular fl (82.0-101.0 Volume ) Mean 21.4 Corpuscular pg (29.0-33.0) Hemoglobin Mean 30.9 Corpuscular g/dl (32.0-37. Hemoglobin Conc 0) ent Red Cell 21.7 Distribution % (11.5-14.5) Width Platelet Count 270 10^3/UL (140-4 15) Mean Platelet 11.7 Volume fl (7.4-10.4) Immature 0.700 Granulocytes % % (0.001-0.429 ) Neutrophils % 57.6 % (39.0-77.0) Lymphocytes % 33.5 % (15.0-51.0) Monocytes % 7.3 % (0.0-11.0) Eosinophils % 0.7 % (0.0-7.0) Basophils % 0.2 % (0.0-2.0) Nucleated Red 0.0 Blood Cells % /100WBC (0.0-0 .0) Immature 0.060 Granulocytes # 10^3/ul (0.0-0 .031) Neutrophils # 5.3 10^3/ul (1.6-7 .5) Lymphocytes # 3.1 10^3/ul (0.8-2 .9) Monocytes # 0.7 10^3/ul (0.3-0 .9) Eosinophils # 0.1 10^3/ul (0.0-0 .5) Basophils # 0.0 10^3/ul (0.0-0 .1) Nucleated Red 0.0 Blood Cells # 10^3/ul (0.0-0 .0) Sodium Level 143 mmol/L (135-14 4) Potassium 3.7 Level mmol/L (3.5-5. 1) Chloride Level 105 mmol/L (97-110 ) Carbon Dioxide 26 Level mmol/L (21-31) Anion Gap 12 (5-13) Blood Urea 18 Nitrogen mg/dl (7-20) Creatinine 0.93 mg/dl (0.44-1. 00) Est Glomerular mL/min (>60) Filtrat Rate mL/min Glucose Level 129 mg/dl (70-220) Calcium Level 8.2 mg/dl (8.4-10. 2) Phosphorus 2.7 Level mg/dl (2.5-4.9 ) Magnesium 1.9 Level mg/dl (1.7-2.5 ) ROCKY CLIFFORD NP Sep 22, 2018 10:40
[2018-09-22] MEDS ORDERED: FER325 PO (10:42)
[2018-09-22 12:12] VITALS: BP 127/70
[2018-09-22 14:00] VITALS: BP 128/78; PULSE 82; RESP 19
== END 2018-09-22 14:30 | disposition home health service (06) | DRG 378 ==
LOC: E/R 19:54 → UNDOADMOB 09-17 03:17 → 2NE 09-17 03:17 → OBSVTOIN 09-17 09:59 → INTOOBSV 09-17 09:59 → 2NE 09-18 09:59 → OBSVTOIN 09-18 09:59
PROVIDERS: ADMIT Family Medicine; ATTEND Family Medicine
PROC: 0DJD8ZZ Inspection of Lower Intestinal Tract, Via Natural or Artificial Opening Endoscopic (ICD-10-PCS; 2018-09-18)
PROC: 0DB58ZX Excision of Esophagus, Via Natural or Artificial Opening Endoscopic, Diagnostic (ICD-10-PCS; principal; 2018-09-18 13:00)
PROC: 0DB68ZX Excision of Stomach, Via Natural or Artificial Opening Endoscopic, Diagnostic (ICD-10-PCS; 2018-09-18 13:00)
PROC: 30233N1 Transfusion of Nonautologous Red Blood Cells into Peripheral Vein, Percutaneous Approach (ICD-10-PCS; 2018-09-19)
DX: K57.31 Diverticulosis of large intestine without perforation or abscess with bleeding (principal); N17.9 Acute kidney failure, unspecified; D62 Acute posthemorrhagic anemia; C78.01 Secondary malignant neoplasm of right lung; E11.22 Type 2 diabetes mellitus with diabetic chronic kidney disease; K62.5 Hemorrhage of anus and rectum; I12.9 Hypertensive chronic kidney disease with stage 1 through stage 4 chronic kidney disease, or unspecified chronic kidney disease; N18.9 Chronic kidney disease, unspecified; D50.9 Iron deficiency anemia, unspecified; J06.9 Acute upper respiratory infection, unspecified; E78.5 Hyperlipidemia, unspecified; H40.9 Unspecified glaucoma; Z79.4 Long term (current) use of insulin; Z87.891 Personal history of nicotine dependence; Z85.21 Personal history of malignant neoplasm of larynx
CPT/HCPCS: 36430; 71045; 71260; 74176; 80048; 80053; 80061; 81001; 81003; 82728; 82962; 83036; 83540; 83690; 83735; 84100; 84132; 84443; 85025; 85610; 85651; 85730; 86140; 86850; 86900; 86901; 86920; 87086; 88305; 88312; 88313; 93005; 96360; 97116; 97162; 97530; J1200; J2270; J2405; J2916; J7030; J7040; P9016; Q9967